=== PATIENT | female | born 1955 | race Hispanic/Latino ===

== ENCOUNTER 2021-03-23 21:21 | Emergency (ER) | payer BC, OTHER ==
[~2021-03-23] VITALS: Ht 162.6 cm; Wt 81.6 kg
[2021-03-23 23:27] VITALS: BP 116/74
[2021-03-24 01:40] VITALS: BP 128/70
[2021-03-24] MEDS ORDERED: KETOROLAC 30MG VIAL (30MG/ML) ONE (01:46)
[2021-03-24] MEDS ORDERED: KETOROLAC 30MG VIAL (30MG/ML) IM ONE (02:00)
[2021-03-24] MEDS ORDERED: SOLU-MEDROL 125MG VIAL IM ONE (02:30)
[2021-03-24] MEDS ORDERED: KETOROLAC 15MG/ML VIAL (15MG/ML) IM PRN (02:30)
[2021-03-24] MEDS ORDERED: SOLU-MEDROL 125MG VIAL ONE (02:34)
[2021-03-24] MEDS ORDERED: KETOROLAC 15MG/ML VIAL (15MG/ML) ONE (02:34)
[2021-03-24] MEDS ORDERED: METH4TAB3 PO (02:44)
[2021-03-24 03:03] VITALS: BP 127/63
== END 2021-03-24 03:23 | disposition home or self-care (01) ==
LOC: EDH 21:21
DX: S30.0XXA Contusion of lower back and pelvis, initial encounter (principal); Z88.6 Allergy status to analgesic agent; X58.XXXA Exposure to other specified factors, initial encounter; Y93.89 Activity, other specified; Y92.89 Other specified places as the place of occurrence of the external cause; Y99.8 Other external cause status
CPT/HCPCS: 96372 ×3; 99284; J1885 ×2; J2930